=== PATIENT | male | born 1985 | race Caucasian/White ===

== ENCOUNTER 2018-03-16 23:50 | Emergency (ER) | payer BC, OTHER ==
[2018-03-17 01:40] LABS: BASO % 0.2 % (0.0-1.0); EOS # 0.1 10^3/uL (0.0-0.50); EOS % 1.2 % (0.0-3.0); HEMATOCRIT 40.4 % (42.0-52.0); HEMOGLOBIN 13.4 g/dl (13.5-17.5); IMMATURE GRANULOCYTE % 0.2 % (0-3.0); LYMPH % 51.7 % (24.0-44.0); MEAN CORPUSCULAR HEMOGLOBIN 27.6 pg (27.0-33.0); MEAN CORPUSCULAR HGB CONC 33.2 g/dl (32.0-36.5); MEAN CORPUSCULAR VOLUME 83.1 fl (80.0-96.0); MONO # 0.5 10^3/uL (0.0-0.8); MONO % 7.9 % (0.0-5.0); NEUTROPHILS # 2.2 10^3/uL (1.8-7.7); NEUTROPHILS % 38.8 % (36.0-66.0); PLATELET COUNT, AUTOMATED 226 10^3/uL (150-450); RED BLOOD COUNT 4.86 10^6/uL (4.30-6.10); RED CELL DISTRIBUTION WIDTH 12.5 % (11.5-14.5); WHITE BLOOD COUNT 5.7 10^3/uL (4.0-10.0)
[2018-03-17 02:01] LABS: ALBUMIN/GLOBULIN RATIO 1.29 (1.00-1.93); ALKALINE PHOSPHATASE 65 U/L (45-117); ALT/SGPT 12 U/L (12-78); ANION GAP 4 MEQ/L (8-16); AST/SGOT 17 U/L (7-37); BILIRUBIN,DIRECT < 0.1 MG/DL (0.0-0.2); BILIRUBIN,TOTAL 0.2 MG/DL (0.2-1.0); BLOOD UREA NITROGEN 23 MG/DL (7-18); CALCIUM LEVEL 9.1 MG/DL (8.5-10.1); CARBON DIOXIDE LEVEL 30 MEQ/L (21-32); CHLORIDE LEVEL 108 MEQ/L (98-107); CREATININE FOR GFR 0.89 MG/DL (0.70-1.30); GLOMERULAR FILTRATION RATE > 60.0 (>60); GLUCOSE, FASTING 91 MG/DL (70-100); LIPASE 97 U/L (73-393); POTASSIUM SERUM 4.2 MEQ/L (3.5-5.1); SODIUM LEVEL 142 MEQ/L (136-145); TOTAL PROTEIN 7.1 GM/DL (6.4-8.2)
[2018-03-17] MEDS: GI COCKTAIL 50ML BTL(HYOSCYAMINE/MAALOX/LIDOCAINE VISCOUS)(1:3:1) PO (03:30)
== END 2018-03-17 04:21 | disposition home or self-care (01) ==
LOC: M ED 23:50
DX: K29.70 Gastritis, unspecified, without bleeding (principal)
CPT/HCPCS: 76705

== ENCOUNTER 2021-08-08 09:04 | Emergency (ER) | payer BC, OTHER ==
[~2021-08-08] VITALS: Ht 165.1 cm; Wt 65.9 kg
[~2021-08-08 09:04] MED LIST: PROT1TAB2 PO
[2021-08-08 09:06] VITALS: BP 111/59
[2021-08-08] MEDS ORDERED: ACET-907 PO (10:37)
[2021-08-08] MEDS ORDERED: NS 1,000 ML IV ONE (11:20)
--- NOTE | 2021-08-08 11:44 | REP ---
INDICATION: Coronavirus workup. COMPARISON: None. TECHNIQUE: Portable FINDINGS: The technique utilized in obtaining the radiograph has magnified the cardiac silhouette and accentuated the interstitial markings. The cardiomediastinal silhouette is within normal limits. The heart is not enlarged. There are bibasilar patchy airspace opacities. The pleural angles are sharp. The osseous structures are within normal limits. IMPRESSION: Bibasilar pneumonia. <Electronically signed by Nghia Bliss > 08/08/21 [id number]
[2021-08-08 12:08] LABS: BASO % 0.6 % (0.0-1.0); EOS % 0.6 % (0.0-3.0); HEMATOCRIT 41.8 % (42.0-52.0); HEMOGLOBIN 13.3 g/dl (13.5-17.5); LYMPH # 1.3 10^3/uL (1.5-5.0); LYMPH % 38.2 % (24.0-44.0); MEAN CORPUSCULAR HEMOGLOBIN 27.2 pg (27.0-33.0); MEAN CORPUSCULAR HGB CONC 31.8 g/dl (32.0-36.5); MEAN CORPUSCULAR VOLUME 85.5 fl (80.0-96.0); MONO # 0.3 10^3/uL (0.0-0.8); MONO % 8.6 % (2.0-8.0); NEUTROPHILS # 1.8 10^3/uL (1.5-8.5); NEUTROPHILS % 51.1 % (36.0-66.0); PLATELET COUNT, AUTOMATED 175 10^3/uL (150-450); RED BLOOD COUNT 4.89 10^6/uL (4.30-6.10); WHITE BLOOD COUNT 3.5 10^3/uL (4.0-10.0)
[2021-08-08 12:24] LABS: INR 0.94
[2021-08-08 12:25] LABS: PARTIAL THROMBOPLASTIN TIME 36.2 SECONDS (25.9-37.0)
[2021-08-08 12:28] LABS: D-DIMER QUANT 713.74 ng/ml (<500)
[2021-08-08 12:42] LABS: C REACTIVE PROTEIN QUANTITATIV 3.36 MG/DL (0.00-0.30); CK-MB VALUE MASS 2.3 NG/ML (<3.6); CPK CREATINE PHOSPHOKINASE 114 U/L (39-308); FERRITIN 656 NG/ML (26-388); LDH LACTATE DEHYDROGENASE 222 U/L (87-241); MAGNESIUM LEVEL 2.6 MG/DL (1.8-2.4); MB/CK RELATIVE INDEX 2.02 (< OR =4); TROPONIN I < 0.02 NG/ML (< 0.10)
[2021-08-08] MEDS ORDERED: ISOVUE-370 76% 100ML VIAL As Ordered ONE (13:06)
--- NOTE | 2021-08-08 13:36 | REP ---
INDICATION: SOB/JOSHI COMPARISON: None. TECHNIQUE: CT angiography of the chest after the intravenous administration of 75 cc Isovue 370. Attention pulmonary arteries. FINDINGS: There is excellent visualization of the pulmonary arterial vasculature. No focal filling defects are present that would be considered consistent with acute pulmonary emboli. There are no pleural or pericardial effusions. There is no mediastinal or hilar adenopathy or mass. The imaged upper abdomen and imaged osseous structures are within normal limits. Limited evaluation of the thoracic aorta shows no gross abnormality. Evaluation of the lung sosa shows scattered patchy bilateral airspace opacities with significant lower lobe predominance. IMPRESSION: 1. There is no evidence of a pulmonary embolism 2. Bilateral airspace disease as described above consistent with pneumonia. Does this patient have COVID-19? <Electronically signed by Nghia Bliss > 08/08/21 [id number]
[2021-08-08 14:32] LABS: ALBUMIN 3.2 GM/DL (3.2-5.2); ALT/SGPT 25 U/L (12-78); BILIRUBIN,DIRECT < 0.1 MG/DL (0.0-0.2); BILIRUBIN,TOTAL 0.2 MG/DL (0.2-1.0); TOTAL PROTEIN 6.4 GM/DL (6.4-8.2)
--- NOTE | 2021-08-08 19:25 | ECGEPIP ---
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
== END 2021-08-08 14:59 | disposition home or self-care (01) ==
LOC: M ED 09:04
DX: J18.8 Other pneumonia, unspecified organism (principal); U07.1 COVID-19
CPT/HCPCS: 36415; 71045; 71275; 80047; 80076; 82550; 82553; 82728; 83605; 83615; 83735; 84145; 84484; 85025; 85379; 85384; 85610; 85730; 86140; 87040; 93005; 99284; Q9967

== ENCOUNTER → 2024-11-17 | Outpatient (REF) | payer OTHER ==
[~2024-11-17] MED LIST changes: +ACET-907 PO
[2024-11-17 17:11] LABS: BASO % 0.1 % (0.0-1.0); EOS % 0.4 % (0.0-3.0); HEMATOCRIT 43.5 % (42.0-52.0); HEMOGLOBIN 14.1 g/dl (13.5-17.5); LYMPH # 2.4 10^3/uL (1.5-5.0); LYMPH % 34.1 % (24.0-44.0); MEAN CORPUSCULAR HEMOGLOBIN 27.6 pg (27.0-33.0); MEAN CORPUSCULAR HGB CONC 32.4 g/dl (32.0-36.5); MEAN CORPUSCULAR VOLUME 85.1 fl (80.0-96.0); MONO # 0.5 10^3/uL (0.0-0.8); MONO % 7.5 % (2.0-8.0); NEUTROPHILS % 57.6 % (36.0-66.0); PLATELET COUNT, AUTOMATED 245 10^3/uL (150-450); RED BLOOD COUNT 5.11 10^6/uL (4.30-6.10)
[2024-11-17 17:34] LABS: ALBUMIN 4.2 G/DL (3.2-5.2); ALKALINE PHOSPHATASE 60 U/L (40-129); ALT/SGPT < 9 U/L (7.0-40); AST/SGOT 14 U/L (<34); BILIRUBIN,TOTAL 0.5 MG/DL (0.3-1.2); BLOOD UREA NITROGEN 15 MG/DL (9-23); CALCIUM LEVEL 9.9 MG/DL (8.5-10.1); CARBON DIOXIDE LEVEL 32 MMOL/L (20-31); CHLORIDE LEVEL 104 MMOL/L (98-107); CHOLESTEROL LEVEL 219 MG/DL (<200); CHOLESTEROL RISK RATIO 2.84 (<5); CREATININE FOR GFR 0.86 MG/DL (0.70-1.30); GLOMERULAR FILTRATION RATE > 60.0 (>60); GLUCOSE, FASTING 85 MG/DL (60-100); HDL CHOLESTEROL 76.9 MG/DL (>40); LDL CHOLESTEROL 114.3 MG/DL (<100); NON-HDL-C 142.1 MG/DL; POTASSIUM SERUM 4.3 MMOL/L (3.5-5.1); SODIUM LEVEL 142 MMOL/L (136-145); THYROID STIMULATING HORMONE 0.807 uIU/ML (0.55-4.78); TOTAL PROTEIN 6.9 G/DL (5.7-8.2); TRIGLYCERIDES LEVEL 139 MG/DL (<150)
== END ==
LOC: M SFHCLERA 13:35
DX: B35.4 Tinea corporis (principal); B35.3 Tinea pedis; Z13.220 Encounter for screening for lipoid disorders